=== PATIENT | female | born 1975 | race Two or more races ===

== ENCOUNTER 2016-05-07 03:31 | Emergency (ER) | payer BC, OTHER ==
[2016-05-07 03:59] VITALS: BP 120/58; PULSE 91; RESP 18; TEMP 97.8
--- NOTE | 2016-05-07 03:59 | ED ---
General Adult HPI - General Chief complaint: Psychiatric Symptoms Stated complaint: depression Time Seen by Provider: 05/07/16 03:56 Source: patient, RN notes reviewed Mode of arrival: ambulatory Limitations: no limitations - History of Present Illness Initial comments: Patient is a pleasant 41-year-old female presenting to the emergency Department with complaints of depression. Symptoms have been present for weeks. Patient has multiple stressors. Patient has suicidal thoughts without specific plan. Patient does have a history of self harm in the past. No homicidal thoughts. No hallucinations. Occasional alcohol. No street drug use. No physical complaints. - Related Data Home Medications Medication Instructions Recorded Confirmed ALPRAZolam [Xanax] 0.25 mg PO Q8HR PRN 05/07/16 05/07/16 Albuterol Sulfate [Proair Hfa] 1 - 2 puff INHALATION Q6HR PRN 05/07/16 05/07/16 Diazepam [Valium] 5 mg PO BID 05/07/16 05/07/16 FLUoxetine HCL [PROzac] 10 mg PO DAILY 05/07/16 05/07/16 Allergies Allergy/AdvReac Type Severity Reaction Status Date / Time latex Allergy Rash/Hives Verified 05/07/16 03:38 meperidine HCl [From Demerol] Allergy Confusion Verified 05/07/16 03:38 Penicillins Allergy Rash/Hives Verified 05/07/16 03:38 Sulfa (Sulfonamide Allergy Rapid Verified 05/07/16 03:38 Antibiotics) Heart Rate Review of Systems ROS Statement: Those systems with pertinent positive or pertinent negative responses have been documented in the HPI. ROS Other: All systems not noted in ROS Statement are negative. Constitutional: Denies: fever Eyes: Denies: eye pain ENT: Denies: ear pain Respiratory: Denies: cough Cardiovascular: Denies: chest pain Endocrine: Denies: fatigue Gastrointestinal: Denies: abdominal pain Genitourinary: Denies: dysuria Musculoskeletal: Denies: back pain Skin: Denies: rash Neurological: Denies: weakness Psychiatric: Reports: depression, suicidal thoughts Past Medical History Past Medical History: Asthma, Renal Disease Additional Past Medical History / Comment(s): deviated septum, polyps-nares, History of Any Multi-Drug Resistant Organisms: None Reported Past Surgical History: Breast Surgery, Cholecystectomy, Hysterectomy Past Psychological History: Anxiety, Bipolar, Depression, Panic Disorder Smoking Status: Current every day smoker Past Alcohol Use History: Occasional Past Drug Use History: None Reported General Exam Limitations: no limitations General appearance: alert, in no apparent distress Head exam: Present: atraumatic Eye exam: Present: normal appearance, PERRL ENT exam: Present: normal oropharynx Neck exam: Present: normal inspection Respiratory exam: Present: normal lung sounds bilaterally Cardiovascular Exam: Present: regular rate, normal rhythm GI/Abdominal exam: Present: soft. Absent: tenderness Extremities exam: Present: normal inspection Neurological exam: Present: alert Psychiatric exam: Present: depressed Skin exam: Present: normal color Course Vital Signs 05/07/16 03:33 Temperature 97.8 F Pulse Rate 91 Respiratory 18 Rate Blood Pressure 120/58 O2 Sat by Pulse 96 Oximetry Medical Decision Making - Medical Decision Making Patient seen by the health services who recommends discharge and did provide outpatient follow-up. Patient contracts for safety. - Lab Data Lab Results 05/07/16 Range/Units 03:45 Urine Opiates Screen Not Detected (NotDetected) Ur Oxycodone Screen Not Detected (NotDetected) Urine Methadone Screen Not Detected (NotDetected) Ur Propoxyphene Screen Not Detected (NotDetected) Ur Barbiturates Screen Not Detected (NotDetected) U Tricyclic Antidepress Not Detected (NotDetected) Ur Phencyclidine Scrn Not Detected (NotDetected) Ur Amphetamines Screen Not Detected (NotDetected) U Methamphetamines Scrn Not Detected (NotDetected) U Benzodiazepines Scrn Not Detected (NotDetected) Urine Cocaine Screen Not Detected (NotDetected) U Marijuana (THC) Screen Not Detected (NotDetected) Disposition Clinical Impression: Depression Disposition: HOME SELF-CARE Condition: Stable Instructions: Depression (ED), Suicide Prevention for Adults (ED) Additional Instructions: Please follow-up with mental health services as directed. Please also follow- up with your primary care physician. Return for increased depression, thoughts of harming yourself or others, worsening symptoms or other concerns. Referrals: Dereck Joy DO [Primary Care Provider] - 1-2 days
== END 2016-05-07 05:45 | disposition home or self-care (01) ==
LOC: EC 03:31
DX: F31.9 Bipolar disorder, unspecified (principal); F41.0 Panic disorder [episodic paroxysmal anxiety]; F41.9 Anxiety disorder, unspecified; F17.200 Nicotine dependence, unspecified, uncomplicated; Z88.0 Allergy status to penicillin; Z88.5 Allergy status to narcotic agent; Z88.2 Allergy status to sulfonamides; Z91.040 Latex allergy status; Z79.899 Other long term (current) drug therapy
CPT/HCPCS: 80306; 82075; 99284

== ENCOUNTER → 2020-04-22 | Outpatient (CLI) | payer OTHER ==
[2020-04-22 11:09] VITALS: BP 123/79; PULSE 83; RESP 18; TEMP 98.5
--- NOTE | 2020-04-22 11:55 | P.GSHP ---
History of Present Illness H&P Date: 04/22/20 Chief Complaint: Bilateral breast pain Elsa is a 45-year-old white female seen in consultation for Dr. Cary regarding bilateral breast pain. She had bilateral 3-D mammograms performed on 02/17/2020 as well as bilateral ultrasounds. These were felt to be benign BIRADS 2 and routine screening of both breasts in 1 year was recommended. The patient was having left breast pain in the nipple area and int eh right breat like a tooth ache. The pain has been present for the past several months. Right side: pain present 4 months, aching in nature, feels warm at times it is located around [place] intermittent/ 4 times a month last for hours not cylical/ not know what related to independent of the left side no nipple discharge on the right left side: pain present for 6 months located in the nipple/ feels like a needle pick/spreads to middle of breast intermittent/ can be fleeting or last all day not cylical/ not know what related to green discharge on left related to when has the pain for 4 months The patient has had a cyst removed from the right breast and a milk duct removed. These were done in two open biopsies. The patient has not noted any new lumps masses or nodules in either breast. She has had not trauma or infection of the breast. Dee model risk analysis: 5 year risk 8.9%, lifetime risk 49.9% if count aunts, if not 5 year 4.3 % and lifetime 28% Caffiene: 2 cups of coffee/day nicotine: 1 PPD/25 years britta-bromine: monthly Family History: mother: breast cancer, ovarian cancer, cervical cancer maternal aunt: breast cancer, uterine cancer, cervical cancer maternal aunt: breast cancer, cervical cancer, ovarian cancer maternal grandfather: lung cancer maternal uncle: prostate cancer maternal uncle: lung cancer maternal uncle: colon cancer father: prostate and liver cancer brother: cancer ? source paternal grandmother: liver cancer paternal aunt: liver cancer genetic testing done and told There was some hereditary connection for her mother's family Hormonal History: menarche: 8 M1, breast fed: yes, age at first : 19 periods: had a hysterectomy at 34, done for Endometriosis did not take ovaries BCP: deprovera shot 2 years, BCP 4 years Surgical history: Hysterectomy Right breast biopsy 2 Cholecystectomy All of her teeth removed Medical history: asthma CRPS: nerve damage on left side of body Chronic regional pain syndrome Arthritis Depression Social history: Nicotine: 1/2-1 pack per day for 25 years Alcohol: Social Drugs: Marijuana in the past has not used a 4 year/ does use CBD oil daily - Constitutional Constitutional: Reports sweats - EENT Eyes: denies blurred vision, denies pain Ears: bilateral: tinnitus Ears, nose, mouth and throat: Reports headache - Breasts Breasts: bilateral: as per HPI - Cardiovascular Cardiovascular: Denies chest pain, Denies shortness of breath - Respiratory Comment: asthma - Gastrointestinal Comment: IBS Gastrointestinal: Reports as per HPI - Genitourinary (Female) Genitourinary: Denies dysuria, Denies hematuria - Menstruation Menstruation: Reports post hysterectomy - Musculoskeletal Comment: arthritis Musculoskeletal: Reports myalgias - Integumentary Integumentary: Reports rash, Denies pruritus - Neurological Comment: CRPS Chronic regional pain syndrome on the left side of body secondary to a trauma - Psychiatric Comment: bipolar Psychiatric: Reports anxiety, Reports depression - Endocrine Endocrine: Reports fatigue, Denies weight change - Hematologic/Lymphatic Comment: none - Allergic/Immunologic Allergic/Immunologic: Reports seasonal allergies Past Medical History Past Medical History: Asthma, Renal Disease Additional Past Medical History / Comment(s): deviated septum, polyps-nares, History of Any Multi-Drug Resistant Organisms: None Reported Past Surgical History: Breast Surgery, Cholecystectomy, Hysterectomy Past Psychological History: Anxiety, Bipolar, Depression, Panic Disorder Smoking Status: Current every day smoker Past Alcohol Use History: Occasional Past Drug Use History: None Reported Medications and Allergies Home Medications Medication Instructions Recorded Confirmed Type Albuterol Sulfate [Proair Hfa] 1 - 2 puff INHALATION Q6HR PRN 05/07/16 05/07/16 History Ascorbic Acid [Vitamin C] 500 mg PO DAILY 04/22/20 04/22/20 History Ascorbic Acid/Elderberry Fruit 1 each PO DAILY 04/22/20 04/22/20 History [Elderberry-Vit C 50-100 mg Chw] Cbd 1 unit TOPICAL DAILY PRN 04/22/20 04/22/20 History Ergocalciferol (Vitamin D2) 1,250 mcg PO ONCE 04/22/20 04/22/20 History [Vitamin D2 (50,000 Iu)] Ibuprofen [Motrin] 800 mg PO Q8H PRN 04/22/20 04/22/20 History Multivitamin [Multivitamins Adult 1 each PO DAILY 04/22/20 04/22/20 History Gummies] Zinc 50 mg PO DAILY 04/22/20 04/22/20 History Allergies Allergy/AdvReac Type Severity Reaction Status Date / Time latex Allergy Rash/Hives Verified 04/22/20 11:02 meperidine HCl [From Demerol] Allergy Confusion Verified 04/22/20 11:02 Penicillins Allergy Rash/Hives Verified 04/22/20 11:02 Sulfa (Sulfonamide Allergy Rapid Verified 04/22/20 11:02 Antibiotics) Heart Rate Surgical - Exam Vital Signs Temp Pulse Resp BP Pulse Ox 98.5 F 83 18 123/79 97 04/22/20 11:06 04/22/20 11:06 04/22/20 11:06 04/22/20 11:06 04/22/20 11:06 BMI 39.4 - General obese - Eyes normal ocular movement - ENT normal pinna, normal mucosa - Neck no masses, trachea midline - Respiratory normal expansion, normal respiratory effort, clear to auscultation bilateral: wheezing - Cardiovascular Rhythm: regular Heart Sounds: normal: S1, S2 - Abdomen Abdomen: soft, bowel sounds - Integumentary normal turgor 5 nevi of concern Left breast 2 7:00 periareolar region and 1:00 area Right shoulder Back 2 on bra line - Neurologic no disoriented, no combative - Musculoskeletal normal gait, normal posture - Psychiatric oriented to time, oriented to person, oriented to place, speech is normal, memory intact breast exam: BRA: XL sports bra inspection: Bilateral grade 2 ptosis Palpation: Right breast: Multi-positional exam well-healed scars from prior surgery fibrocystic changes, no dominant masses or nodules of concern Right axilla: No adenopathy of concern Left breast: Multi-positional exam well-healed scars from prior surgery, fibrocystic changes, no dominant masses or nodules of concern, 2 nevi of concern one is in the periareolar region at the 7:00 area and the second is in the upper outer area approximately 1:00 Left axilla: No adenopathy of concern Results mammogram and ultrasound results reviewed Assessment and Plan Assessment: Impression: asthma CRPS: nerve damage on left side of body Chronic regional pain syndrome Arthritis Depression Bilateral mastodynia Fibrocystic breast changes Mammogram and ultrasound performed in February 2020 which is benign BIRADS 2 Nicotine dependence Caffeine daily Strong family history of cancer Probable perimenopausal Causes her mastodynia are most likely multifactorial in this patient. She was most likely perimenopausal hormonal fluctuations, she has fibrocystic breast changes which are exacerbated by caffeine and nicotine. The patient has not been an physical examination radiographically which would warrant interventional biopsy Plan: 1. Encourage patient to Decreased caffeine intake and stop smoking 2. FSH LH progesterone and estrogen levels 3. Removal of skin lesions in the office 4. Follow-up with dermatology 5. Strongly recommend genetic counseling/ to set this up with [facility] [place] 6. follow up after genetic testing 1 month 7. discussed chemo prevention patient will consider it after genetic testing Cc: Dr. Cary encounter 55 minutes time spent in reviewing medical records, physical examination, and counseling.
[2020-04-23 00:19] LABS: Luteinizing Hormone 6.2 mIU/mL
[2020-04-23 00:20] LABS: Follicle Stimulating Hormone 7.9 mIU/mL
== END | disposition home or self-care (01) ==
LOC: WWCWWP 10:54
PROVIDERS: ATTEND Surgery
DX: N64.4 Mastodynia (principal)
CPT/HCPCS: 82672; 83001; 83002; 84144; 84439; 84443

== ENCOUNTER → 2020-05-20 | Outpatient (CLI) | payer OTHER ==
[2020-05-20 09:27] VITALS: BP 117/70; PULSE 88; RESP 18; TEMP 98.4
--- NOTE | 2020-05-20 10:05 | P.PCN ---
Date of Procedure: 05/20/20 Preoperative Diagnosis: Lesions of concern mid back at bra line Postoperative Diagnosis: same Procedure(s) Performed: Excision of 2 skin lesions mid back Anesthesia: local Surgeon: Elva Enriquez Pathology: other (Skin lesion 2) Condition: stable Disposition: same day Indications for Procedure: Dark nevi mid back Operative Findings: Dark nevi mid back Description of Procedure: The area of concern in the mid back was prepped and draped in a sterile fashion. There were 2 lesions. Mid back and left lateral buttock areas were prepped in the sterile fashion. The mid back lesion was approached first. One percent lidocaine was used to anesthetize the area of concern. Wide excision was performed. Skin was closed using a nylon suture. This was specimen a mid back Specimen the left lateral back area was prepped using Betadine. 1% lidocaine was used to anesthetize the area of concern. Wide excision was performed. Skin was closed using a 3-0 nylon suture. Patient tolerated procedure in stable condition this is specimen the left lateral back. Specimen A was 1 cm Specimen B was 1.8 cm
== END ==
LOC: WWCWWP 08:55
PROVIDERS: ATTEND Surgery
DX: R92.8 Other abnormal and inconclusive findings on diagnostic imaging of breast (principal); D22.5 Melanocytic nevi of trunk
CPT/HCPCS: 88305

== ENCOUNTER → 2020-05-27 | Outpatient (CLI) | payer OTHER ==
[2020-05-27 14:55] VITALS: BP 127/70; PULSE 100; RESP 18; TEMP 99
--- NOTE | 2020-05-27 16:13 | P.PN ---
Progress Note - Text Progress Note Date: 05/27/20 Elsa is a 45 year old white female status post excision of 2 nevi on her mid back at the bra line. Each were dysplastic and had some atypia at the margin tips. They are going to be reexcised. She did well with the excision. The sutures are ready to be removed. Physical exam: Incisions clean and dry Impression: 2 dysplastic nevi removed from mid back/bra line with atypia at the margins Patient with 3 additional nevi for which resection has been recommended, 2 on her left breast and one on the right shoulder Plan: 1. Remove sutures 2. Follow-up for reexcision of these nevi and excision of the other 3 nevi in the near future CC: Raeann
== END | disposition home or self-care (01) ==
LOC: WWCWWP 14:38
PROVIDERS: ATTEND Surgery
DX: D22.61 Melanocytic nevi of right upper limb, including shoulder (principal); D22.5 Melanocytic nevi of trunk; F17.200 Nicotine dependence, unspecified, uncomplicated